=== PATIENT | female | born 1945 | race American Indian/Alaskan Native ===

== ENCOUNTER 2018-09-23 12:37 | Emergency (ER) | payer MEDICARE ==
--- NOTE | 2018-09-23 12:52 | Event Note ---
ED Screening Note ED Screening Note: here w fam all poor informants ? psych hx ? dementia htn This initial assessment/diagnostic orders/clinical plan/treatment(s) is/are subject to change based on patients health status, clinical progression and re- assessment by fellow clinical providers in the ED. Further treatment and workup at subsequent clinical providers discretion. Patient/guardian urged not to elope from the ED as their condition may be serious if not clinically assessed and managed. Initial orders include: ro med cause of her rambling thoughts and paranoia
[2018-09-23 13:23] LABS: Basophils % (Auto) 0.4 % (0.0-1.8); Eosinophils # (Auto) 0.1 K/mm3 (0.0-0.4); Eosinophils % (Auto) 1.1 % (0.0-4.3); Hematocrit 34.8 % (30.3-42.9); Hemoglobin 11.5 gm/dl (10.1-14.3); Lymphocytes # (Auto) 1.9 K/mm3 (1.2-5.4); Lymphocytes % (Auto) 33.2 % (13.4-35.0); Mean Corpuscular HGB Conc 33 % (30-34); Mean Corpuscular Volume 84 fl (79-97); Monocytes # (Auto) 0.3 K/mm3 (0.0-0.8); Monocytes % (Auto) 5.4 % (0.0-7.3); Platelet Count 247 K/mm3 (140-440); Red Blood Count 4.17 M/mm3 (3.65-5.03); Red Cell Distribution Width 15.9 % (13.2-15.2)
[2018-09-23 13:52] LABS: Albumin 4.1 g/dL (3.9-5); Calcium 9.9 mg/dL (8.4-10.2)
--- NOTE | 2018-09-23 15:13 | Cat Scan Report ---
CT HEAD WITHOUT CONTRAST: HISTORY: Altered mental status. TECHNIQUE: Sequential 2.5mm CT images. COMPARISON: none. FINDINGS: Cerebral Parenchyma: Mild hypoattenuation is identified throughout the white matter consistent with chronic small vessel disease. The remaining brain parenchyma demonstrates normal attenuation. Cerebellum: Within normal limits. Brainstem: Within normal limits. Ventricles: Normal. Sella: Normal. Extra-axial spaces: Normal. Basal Cisterns: Normal. Intracranial Hemorrhage: None. Midline Shift: None. Calvarium: Normal. Sinuses: Normal. Mastoid Air Cells: Normal. Visualized Orbits: Normal. IMPRESSION: Chronic small vessel disease in the white matter. No acute intracranial process is identified.
[2018-09-23] MEDS ORDERED: NORVASC PO ONE (20:40)
--- NOTE | 2018-09-23 20:44 | Emergency Department Report ---
HPI - General Chief Complaint: Psych Time Seen by Provider: 09/23/18 12:52 - HPI HPI: 73-year-old -[place] female presents to the emergency department, with her daughters at bedside, for a mental health evaluation. The patient has been exhibiting some paranoid delusions. The patient herself says that there are drugs that she is being exposed to wherever she is staying, including at her daughter's house, and it is knocking her unconscious. The patient is unable to say who was doing the drugs, how she knows that they are drugs, and cannot c onfirm that she has seen any drugs. The patient just recently came in from [place], where she lived, and has been going in between multiple family members houses. Her daughter says that she did not even know that her mother was in town until very recently. The patient also has been saying that people are stealing her stuff and then the alleged stolen goods are found later in the day or the next day. Patient does have some history of some type of paranoid delusions in the past, when she was living in [place], that appears to have caused her to require inpatient psychiatric treatment and evaluation. She has a past history of hypertension and some chronic kidney disease. She denies any s uicidal or homicidal ideations. ED Past Medical Hx - Past Medical History Previous Medical History?: Yes Hx Hypertension: Yes Hx Renal Disease: Yes - Surgical History Past Surgical History?: No ED Review of Systems ROS: Stated complaint: MH Other details as noted in HPI Comment: All other systems reviewed and negative Constitutional: denies: chills, fever Eyes: denies: eye pain, vision change ENT: denies: ear pain, throat pain Respiratory: denies: cough, shortness of breath Cardiovascular: denies: chest pain, palpitations Gastrointestinal: denies: abdominal pain, vomiting Genitourinary: denies: dysuria, discharge Musculoskeletal: denies: back pain, arthralgia Skin: denies: rash, lesions Neurological: denies: headache, weakness Psychiatric: other (paranoia, delusions). denies: homicidal thoughts, suicidal thoughts Physical Exam - Physical Exam Vital Signs: Vital Signs 09/23/18 09/23/18 09/23/18 13:05 17:56 20:08 Temperature 98.2 F 98.6 F Pulse Rate 85 60 61 Respiratory 18 16 17 Rate Blood Pressure 204/53 136/64 165/58 [Right] O2 Sat by Pulse 98 100 99 Oximetry Physical Exam: GENERAL: The patient is well-developed well-nourished. HENT: Normocephalic. Atraumatic. Patient has moist mucous membranes. EYES: Extraocular motions are intact. Pupils equal reactive to light bilaterally. NECK: Supple. Trachea is midline. CHEST/LUNGS: Clear to auscultation. There is no respiratory distress noted. HEART/CARDIOVASCULAR: Regular. There is no tachycardia. There is no murmur. ABDOMEN: Abdomen is soft, nontender. Patient has normal bowel sounds. There is no abdominal distention. SKIN: Skin is warm and dry. NEURO: The patient is awake, alert, and oriented. The patient is cooperative. The patient has no focal neurologic deficits. The patient has normal speech. MUSCULOSKELETAL: There is no tenderness or deformity. There is no evidence of acute injury. ED Course Vital Signs 09/23/18 09/23/18 09/23/18 13:05 17:56 20:08 Temperature 98.2 F 98.6 F Pulse Rate 85 60 61 Respiratory 18 16 17 Rate Blood Pressure 204/53 136/64 165/58 [Right] O2 Sat by Pulse 98 100 99 Oximetry ED Medical Decision Making - Lab Data Result diagrams: 09/23/18 12:59 09/23/18 12:59 - Medical Decision Making This patient presents to the emergency department for a mental health evaluation. She appears to be to experiencing paranoia and delusions and some persecutions. The patient thinks that she is being drugged despite the fact that nobody is doing drugs and she has not seen any drugs. She thinks that people are stealing things from her and then they are later found. There are a few moments with patient appears to realize that these things that she is discussing are not real but then has other moments where they appear very real to her and she is looking for legitimate answers. The patient is not suicidal or homicidal and denies any hallucinations. However the patient does appear to need some inpatient psychiatric treatment as these paranoid delusions are keeping her from leaving a normal life and is alienating her family. The patient has some known chronic kidney disease. Her creatinine is only 1.2 and her GFR is 44. She has some hypertension but is well controlled with blood pressure medication. Vital signs stable throughout ED course. The patient has been accepted to the [facility]. She is medically cleared for psychiatric treatment. - Differential Diagnosis schizophrenia, bipolar disorder, dementia Critical Care Time: No Critical care attestation.: If time is entered above; I have spent that time in minutes in the direct care of this critically ill patient, excluding procedure time. ED Disposition Clinical Impression: Paranoia, Delusions Hypertension Qualifiers: Hypertension type: essential hypertension Qualified Code(s): I10 - Essential (primary) hypertension Disposition: OP ADMIT IP TO THIS HOSP Is pt being admited?: Yes Condition: Stable Instructions: Hypertension (ED) Referrals: NOLAN JUAN MD [Primary Care Provider] - 3-5 Days Time of Disposition: 00:07
[2018-09-24 00:12] VITALS: BP 146/54
== END 2018-09-24 00:15 | disposition admitted as inpatient to this hospital (09) ==
LOC: ED 12:37 → UNDOADMIN 22:58 → 5A 22:58 → ED 09-24 00:15
DX: F22 Delusional disorders (principal); I10 Essential (primary) hypertension
CPT/HCPCS: 36415; 70450; 80053; 84443; 85025; 99284; G0480; 80320

== ENCOUNTER 2018-09-23 23:27 | Inpatient (IN) | payer MEDICARE ==
[2018-09-24 08:17] LABS: Chol/HDL Ratio 4.64 %
--- NOTE | 2018-09-24 08:59 | History and Physical Report ---
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 In my interview with the patient, she reports that her people have been gassing her "causing me to sleep and taking my things". She states that she smells gas but others cannot. She relocated from [place] on Saturday and since being in [place] she has went from cousin's, granddaughter, back to cousin, and now at her daughter's house, due to her accusing people of taking her things and drugging her. She reports that she was prescribed Risperidone and Trazodone for Schizophrenia and that she has been noncompliant to her meds for the past 3 mos. Per ED notes, daughter reported that patient has been agitated with family but non-aggressive. Patient denies SI/HI/AVH. Legal Status: Voluntary Patient Problems: Current Active Problems Schizophrenia (Acute) Reaction to Hospitalization: Accepting Substance History - Substance History Drug Use: none Hx Tobacco Use: No Alcohol Use: No Past psychiatric history - Past Medical History Past Medical History: hypertension - past Psychiatric treatment and history Psych: Schizophrenia psychiatric treatment history: She reports being admitted to a Psych facility for 7 days in [place] two years ago. She was prescribed Risperidone and Trazodone. No out-patient follow ups. No history of suicide attempt. - Social History Social history: , lives with family (completed College education, retired, no legal issues, no access to guns and no history of childhood abuse) Review of Systems All systems: negative Psychiatric: paranoia Results - Results Labs/Vitals: Laboratory Last Values 5.3 % (4-6) 09/24/18 07:01 Triglycerides 134 mg/dL (2-149) 09/24/18 07:01 Cholesterol 172 mg/dL (50-199) 09/24/18 07:01 115 mg/dL (50-130) 09/24/18 07:01 37 mg/dL (40-59) L 09/24/18 07:01 4.64 % 09/24/18 07:01 Physical Examination - Constitutional General appearance: Present: no acute distress, well-nourished - EENT Eyes: Present: PERRL, EOM intact ENT: hearing intact, clear oral mucosa, dentition normal - Neck Neck: Present: supple, normal ROM - Respiratory Respiratory effort: normal Mental Status Exam - Exam Orientation: time, place, person Affect: anxious Mood: anxious Thought content: delusions, ideas of reference, paranoia Perceptions: gustatory Speech: normal rate and pattern Concentration: focused Motor activity: normal Level of consciousness: alert Memory: Intact Sleep Symptoms: None Interaction: cooperative, pleasant Mini mental status exam(if necessary): 24-30 Assessment and Plan - Psychiatric problem (1) Schizophrenia Current Visit: Yes Status: Acute plan to address problem: Patient will be admitted for inpatient psychiatric evaluation, medication adjustment and close monitoring The patient's behavior, mood, sleep and appetite will be closely monitored. Patient will be enrolled in individual and group therapeutic sessions and encouraged to attend. Patient will be provided with a safe and structured environment. Patient's physical health needs will be addressed by the Hospitalist. Social Assessment will be completed and the Yoke Setter will work with patient and family to ensure a suitable and safe disposition Medication adjustment will be made as clinically indicated Will re-start Risperidone 0.5mg qhs and Trazodone 25mg qhs prn insomnia The patient agreed on the treatment plan, understood the risk, benefit, alternative treatment, potential consequence of no treatment, and gave informed consent. Physician Certification - Certification Statement Physician Certification Statement: This is an acknowledgement statement that EDWARD STOVALL is a 73 year old F who requires inpatient psychiatric admission for treatment which could reasonably be expected to improve the patient's condition for Schizophrenia Estimated period of time patient will need to remain in the hospital: 7 days Plan for post-hospital care: Out-patient care
[2018-09-24] MEDS ORDERED: ZESTRIL PO SCH (10:00)
[2018-09-24] MEDS: HALFPRIN EC PO SCH (10:07)
[2018-09-24] MEDS: VITAMIN D3 PO SCH (13:38)
--- NOTE | 2018-09-24 14:45 | History and Physical Report ---
History of Present Illness Date of admission: 09/24/18 00:10 Chief complaint: Psychosis History of present illness: 73 YO Female with HTN,Schizophrenia admitted to [facility] with Schizophrenia. Pt seen and evaluated in dayroom. Pt resting comfortable and denies any complaints. Pt pleasant and compliant with exam and interview. Pt denies fever, chills, CP, Palpitations, NVD, Trauma, or recent ill contacts. No reported nursing events. Past History Past Medical History: hypertension Past Surgical History: No surgical history, Other (reviewed) Social history: , lives with family (completed College education, retired, no legal issues, no access to guns and no history of childhood abuse) Family history: hypertension Medications and Allergies Allergies Allergy/AdvReac Type Severity Reaction Status Date / Time No Known Allergies Allergy Verified 09/23/18 23:55 Home Medications Medication Instructions Recorded Confirmed Last Taken Type Aspirin EC 81 mg PO DAILY 09/24/18 09/24/18 Unknown History Lisinopril [Zestril TAB] 40 mg PO QDAY 09/24/18 09/24/18 09/23/18 08:00 History Vitamin D3 5,000 UNIT 5,000 unit PO DAILY 09/24/18 09/24/18 09/23/18 08:00 History risperiDONE 0.5 mg PO DAILY MDD Daily 09/24/18 09/24/18 Unknown History Active Meds: Active Medications Aspirin (Halfprin Ec) 81 mg PO QDAY [facility] Last Admin: 09/24/18 10:07 Dose: 81 mg Documented by: Cholecalciferol (Vitamin D3) 5,000 unit PO QDAY [facility] Last Admin: 09/24/18 13:38 Dose: 5,000 unit Documented by: Lisinopril (Zestril) 40 mg PO QDAY [facility] Last Admin: 09/24/18 10:10 Dose: 40 mg Documented by: Risperidone (Risperdal) 0.5 mg PO [facility] Trazodone HCl (Desyrel) 25 mg PO QHS PRN PRN Reason: Insomnia Review of Systems Constitutional: no weight loss, no weight gain, no fever, no chills Ears, nose, mouth and throat: no ear pain, no ear discharge, no tinnitis, no decreased hearing Cardiovascular: no chest pain, no orthopnea, no palpitations, no rapid/irregular heart beat, no edema Respiratory: no cough, no cough with sputum, no hemoptysis Gastrointestinal: no abdominal pain, no nausea, no vomiting, no diarrhea Genitourinary Female: no pelvic pain, no flank pain, no menorrhagia, no dysuria, no urinary frequency, no urgency Rectal: no pain, no incontinence, no bleeding Musculoskeletal: no neck stiffness, no neck pain, no shooting arm pain, no arm numbness/tingling, no low back pain, no shooting leg pain Integumentary: no rash, no pruritis, no redness, no wounds, no jaundice Neurological: no transient paralysis, no paralysis, no weakness, no parathesias, no numbness, no tingling Psychiatric: no memory loss, no change in sleep habits, no sleep disturbances, no insomnia, no hypersomnia, no change in libido Endocrine: no cold intolerance, no heat intolerance, no polyphagia, no polydipsia, no polyuria Hematologic/Lymphatic: no easy bruising, no easy bleeding Allergic/Immunologic: no urticaria, no allergic rhinitis, no wheezing, no persistent infections, no anaphylaxis Exam - Constitutional Vitals: Temp Pulse Resp BP Pulse Ox 98.1 F 68 18 122/70 100 09/24/18 09:04 09/24/18 10:10 09/24/18 09:04 09/24/18 10:10 09/24/18 09:04 General appearance: Present: no acute distress - EENT Eyes: Present: PERRL ENT: hearing intact, clear oral mucosa - Neck Neck: Present: supple, normal ROM - Respiratory Respiratory effort: normal Respiratory: bilateral: CTA - Cardiovascular Heart Sounds: Present: S1 & S2. Absent: rub, click - Extremities Extremities: pulses symmetrical, No edema Peripheral Pulses: within normal limits - Abdominal General gastrointestinal: Present: soft, non-tender, non-distended, normal bowel sounds Female genitourinary: Present: normal - Integumentary Integumentary: Present: clear, warm, dry - Musculoskeletal Musculoskeletal: gait normal, strength equal bilaterally - Psychiatric Psychiatric: appropriate mood/affect, intact judgment & insight - Neurologic Neurologic: CNII-XII intact, moves all extremities Results - Labs Labs: Abnormal lab results 09/24/18 Range/Units 07:01 HDL Cholesterol 37 L (40-59) mg/dL Assessment and Plan - Patient Problems (1) Schizophrenia Current Visit: Yes Status: Acute Plan to address problem: Management as per primary team. (2) Hypertension Current Visit: No Status: Acute Qualifiers: Hypertension type: essential hypertension Qualified Code(s): I10 - Essential (primary) hypertension Plan to address problem: continue prehospital medication. monitor bp q shift, Pt normotensive at time of exam.
[2018-09-24] MEDS: RisperDAL PO SCH (21:27)
[2018-09-24] MEDS ORDERED: DESYREL PO PRN (22:00)
[2018-09-25] MEDS ORDERED: NON-FORMULARY (Aspirin Ec 81 MG) PO SCH (10:00)
[2018-09-25] MEDS: ZESTRIL PO SCH (10:03)
[2018-09-25] MEDS: VITAMIN D3 PO SCH (10:03)
[2018-09-25] MEDS: HALFPRIN EC PO SCH (10:04)
--- NOTE | 2018-09-25 12:37 | Progress Note ---
Subjective Date of service: 09/25/18 Principal diagnosis: Delusional disorder Subjective Comment: The patient continues to be paranoid, continues to accuse her family of gassing her and stealing from her. As a result of her paranoia she has relocated multiple times. She is pleasant, cooperative and compliant with treatment. She denies SI/HI/AVH. No reported or observed medication side effects. Objective - Criteria for Continued Treatment Criteria for Continued Treatment: Improving Level of Functioning, Understanding Diagnosis and need for Medication, Stablizing Level of Functioning, Improving Emotional/Socia - Mental Status Mental Status: Alert - Objective Observation Participation Level: Full Assessment and Plan - Patient Problems (1) Schizophrenia Current Visit: Yes Status: Acute Plan to address problem: Patient will be admitted for inpatient psychiatric evaluation, medication adjustment and close monitoring The patient's behavior, mood, sleep and appetite will be closely monitored. Patient will be enrolled in individual and group therapeutic sessions and encouraged to attend. Patient will be provided with a safe and structured environment. Patient's physical health needs will be addressed by the Hospitalist. Social Assessment will be completed and the Equipment Maintenance Superintendent will work with patient and family to ensure a suitable and safe disposition Medication adjustment will be made as clinically indicated Continue Risperidone 0.5mg qhs and Trazodone 25mg qhs prn insomnia The patient agreed on the treatment plan, understood the risk, benefit, alternative treatment, potential consequence of no treatment, and gave informed consent.
[2018-09-25] MEDS: RisperDAL PO SCH (21:31)
[2018-09-26] MEDS: VITAMIN D3 PO SCH (10:45)
[2018-09-26] MEDS: HALFPRIN EC PO SCH (10:46)
[2018-09-26] MEDS: ZESTRIL PO SCH (10:47)
[2018-09-26] MEDS: RisperDAL PO SCH (21:12)
[2018-09-27] MEDS: HALFPRIN EC PO SCH (10:54)
[2018-09-27] MEDS: ZESTRIL PO SCH (10:54)
[2018-09-27] MEDS: VITAMIN D3 PO SCH (10:54)
[2018-09-27] MEDS: RisperDAL PO SCH (21:59)
[2018-09-28] MEDS: VITAMIN D3 PO SCH (09:00)
[2018-09-28] MEDS: HALFPRIN EC PO SCH (09:31)
[2018-09-28] MEDS: ZESTRIL PO SCH (10:08)
[2018-09-28] MEDS: RisperDAL PO SCH (21:43)
--- NOTE | 2018-09-28 21:56 | Progress Note ---
Subjective Date of service: 09/26/18 Principal diagnosis: Delusional disorder Subjective Comment: The patient continues to be paranoid, continues to accuse her family of gassing her and stealing from her. She is pleasant, cooperative and compliant with treatment. She denies SI/HI/AVH. No reported or observed medication side effects. Objective - Criteria for Continued Treatment Criteria for Continued Treatment: Improving Level of Functioning, Reducing Isolative Behaviors, Understanding Diagnosis and need for Medication, Improving Treatment / Medication Compliance, Confronting Denial of Illness, Stablizing Level of Functioning, Improving Emotional/Socia - Mental Status Mental Status: Alert - Objective Observation Participation Level: Full Assessment and Plan - Patient Problems (1) Schizophrenia Current Visit: Yes Status: Acute Plan to address problem: Patient will be admitted for inpatient psychiatric evaluation, medication adjustment and close monitoring The patient's behavior, mood, sleep and appetite will be closely monitored. Patient will be enrolled in individual and group therapeutic sessions and encouraged to attend. Patient will be provided with a safe and structured environment. Patient's physical health needs will be addressed by the Hospitalist. Social Assessment will be completed and the Muleser will work with patient and family to ensure a suitable and safe disposition Medication adjustment will be made as clinically indicated Continue Risperidone 0.5mg qhs and Trazodone 25mg qhs prn insomnia The patient agreed on the treatment plan, understood the risk, benefit, a lternative treatment, potential consequence of no treatment, and gave informed consent.
--- NOTE | 2018-09-28 21:58 | Progress Note ---
Subjective Date of service: 09/27/18 Principal diagnosis: Delusional disorder Subjective Comment: The patient is pleasant, cooperative and compliant with treatment. She is still preoccupied by her suspiciousness/paranoia. She denies SI/HI/AVH. No reported or observed medication side effects. Objective - Criteria for Continued Treatment Criteria for Continued Treatment: Improving Level of Functioning, Reducing Isolative Behaviors, Understanding Diagnosis and need for Medication, Improving Treatment / Medication Compliance, Confronting Denial of Illness, Stablizing Level of Functioning, Improving Emotional/Socia - Mental Status Mental Status: Alert - Objective Observation Participation Level: Full Assessment and Plan - Patient Problems (1) Schizophrenia Current Visit: Yes Status: Acute Plan to address problem: Patient will be admitted for inpatient psychiatric evaluation, medication adjustment and close monitoring The patient's behavior, mood, sleep and appetite will be closely monitored. Patient will be enrolled in individual and group therapeutic sessions and encouraged to attend. Patient will be provided with a safe and structured environment. Patient's physical health needs will be addressed by the Hospitalist. Social Assessment will be completed and the Early Childhood Teacher Assistant will work with patient and family to ensure a suitable and safe disposition Medication adjustment will be made as clinically indicated Continue Risperidone 0.5mg qhs and Trazodone 25mg qhs prn insomnia The patient agreed on the treatment plan, understood the risk, benefit, alternative treatment, potential consequence of no treatment, and gave informed consent.
--- NOTE | 2018-09-28 22:00 | Progress Note ---
Subjective Date of service: 09/28/18 Principal diagnosis: Delusional disorder Subjective Comment: The patient is pleasant, cooperative and compliant with treatment. She denies SI/HI/AVH. No reported or observed medication side effects. Objective - Criteria for Continued Treatment Criteria for Continued Treatment: Improving Level of Functioning, Reducing Isolative Behaviors, Understanding Diagnosis and need for Medication, Improving Treatment / Medication Compliance, Confronting Denial of Illness, Stablizing Level of Functioning, Improving Emotional/Socia - Mental Status Mental Status: Alert - Objective Observation Participation Level: Full Assessment and Plan - Patient Problems (1) Schizophrenia Current Visit: Yes Status: Acute Plan to address problem: Patient will be admitted for inpatient psychiatric evaluation, medication adjustment and close monitoring The patient's behavior, mood, sleep and appetite will be closely monitored. Patient will be enrolled in individual and group therapeutic sessions and encouraged to attend. Patient will be provided with a safe and structured environment. Patient's physical health needs will be addressed by the Hospitalist. Social Assessment will be completed and the Seafood Preparer will work with patient and family to ensure a suitable and safe disposition Medication adjustment will be made as clinically indicated Continue Risperidone 0.5mg qhs and Trazodone 25mg qhs prn insomnia The patient agreed on the treatment plan, understood the risk, benefit, alternative treatment, potential consequence of no treatment, and gave informed consent.
--- NOTE | 2018-09-29 08:32 | Progress Note ---
Subjective Date of service: 09/29/18 Principal diagnosis: Delusional disorder Subjective Comment: The patient is pleasant, cooperative and compliant with treatment. She denies SI/HI/AVH. No reported or observed medication side effects. Will plan to discharge patient in am tomorrow. Objective - Criteria for Continued Treatment Criteria for Continued Treatment: Improving Level of Functioning, Improving Treatment / Medication Compliance, Stablizing Level of Functioning - Mental Status Mental Status: Alert - Objective Observation Participation Level: Full Assessment and Plan - Patient Problems (1) Schizophrenia Current Visit: Yes Status: Acute Plan to address problem: Patient will be admitted for inpatient psychiatric evaluation, medication adjustment and close monitoring The patient's behavior, mood, sleep and appetite will be closely monitored. Patient will be enrolled in individual and group therapeutic sessions and encouraged to attend. Patient will be provided with a safe and structured environment. Patient's physical health needs will be addressed by the Hospitalist. Social Assessment will be completed and the [employer] Specialist will work with patient and family to ensure a suitable and safe disposition Medication adjustment will be made as clinically indicated Continue Risperidone 0.5mg qhs and Trazodone 25mg qhs prn insomnia The patient agreed on the treatment plan, understood the risk, benefit, alternative treatment, potential consequence of no treatment, and gave informed consent.
[2018-09-29] MEDS: VITAMIN D3 PO SCH (09:47)
[2018-09-29] MEDS: HALFPRIN EC PO SCH (09:47)
[2018-09-29] MEDS: ZESTRIL PO SCH (09:48)
[2018-09-29] MEDS: RisperDAL PO SCH (21:15)
[2018-09-30] MEDS: VITAMIN D3 PO SCH (10:18)
[2018-09-30] MEDS: HALFPRIN EC PO SCH (10:19)
[2018-09-30] MEDS: ZESTRIL PO SCH (10:19)
[2018-09-30 10:20] VITALS: BP 149/79
--- NOTE | 2018-09-30 12:03 | Discharge Summary ---
Providers - Providers Date of Admission: 09/24/18 00:10 Date of discharge: 09/30/18 Attending physician: OMI DE LA FUENTE MD 09/23/18 23:33 Consult to Physician [CONS] Routine Comment: Consulting Provider: MORENO HERRING Physician Instructions: Reason For Exam: psych admission Primary care physician: [facility] Reason for admission: Paranoid, accusing family members of stealing from her and poisoning her Condition: Good Hospital course: The patient was provided inpatient psychiatric treatment with safe and supportive environment, group therapy, individual counseling, psychiatric medication, medication adjustment, adverse effect monitor, medical evaluation, medical treatment, social service assessment, family/social support meeting, placement assessment and psycho-education. The patients mood, anxiety, thoughts, stress management skill, cognition, impulse/anger control, motivation, understanding of disease, compliance to treatment and appreciation on family/social support are improved and stabilized. At the time of discharge, the patient had no suicidal ideas, no homicidal ideas, no aggressive thoughts, no endangering behavior and no debilitating adverse effects. The patient agreed on the treatment plan, understood the risk, benefit, alternative treatment, potential consequence of no treatment, and gave informed consent. The patient was advised to be compliant with medications, not to use drugs and not to drink alcohol. The patient understands that if suicidal ideas, homicidal ideas, or any endangering thoughts arise, the patient should immediately seek for emergent assistance including but not limited to crisis hot line and emergency room. Follow up with out-patient Psychiatrist and PCP within 14 - 21 days of discharge. Disposition: - TO HOME OR SELFCARE Time spent for discharge: 35 MINS Allergies/Adverse Reactions: Allergies No Known Allergies Allergy (Verified 09/23/18 23:55) Vital Signs: Last Vital Signs Temp 98.5 F 09/30/18 10:00 Pulse 63 09/30/18 10:19 Resp 18 09/29/18 22:00 BP 149/79 09/30/18 10:19 Pulse Ox 98 09/29/18 22:00 Last Lab: Laboratory Last Values 5.3 % (4-6) 09/24/18 07:01 Triglycerides 134 mg/dL (2-149) 09/24/18 07:01 Cholesterol 172 mg/dL (50-199) 09/24/18 07:01 115 mg/dL (50-130) 09/24/18 07:01 37 mg/dL (40-59) L 09/24/18 07:01 4.64 % 09/24/18 07:01 - Discharge Diagnoses (1) Schizophrenia Status: Acute Core Measure Documentation - Palliative Care Palliative Care/ Comfort Measures: Not Applicable - Core Measures Any of the following diagnoses?: none - VTE Discharge Requirements Deep Vein Thrombosis/Pulmonary Embolism Present on Admission: No Has pt received <5 days of overlap therapy or INR<2.0: No Anticoagulant overlap therapy prescribed at discharge: No Contraindication No Overlap Therapy order at DC: Not Indicated Exam - Constitutional Vitals: Temp Pulse Resp BP Pulse Ox 98.5 F 63 18 149/79 98 09/30/18 10:00 09/30/18 10:19 09/29/18 22:00 09/30/18 10:19 09/29/18 22:00 General appearance: Present: no acute distress, well-nourished - EENT Eyes: Present: PERRL, EOM intact ENT: hearing intact, clear oral mucosa - Neck Neck: Present: supple, normal ROM - Respiratory Respiratory effort: normal Plan Activity: no restrictions Weight Bearing Status: Full Weight Bearing Diet: low cholesterol Follow up with: NOLAN JUAN MD [Primary Care Provider] - 7 Days Prescriptions: traZODone [Desyrel] 25 mg PO QHS PRN #30 tablet PRN Reason: Insomnia risperiDONE [RisperDAL] 0.5 mg PO HS 30 Days #60 tablet
== END 2018-09-30 17:15 | disposition home or self-care (01) | DRG 885 ==
LOC: 5A 09-24 00:10
PROVIDERS: ADMIT Psychiatry & Neurology Psychiatry; ATTEND Psychiatry & Neurology Psychiatry
DX: F20.9 Schizophrenia, unspecified (principal); I10 Essential (primary) hypertension; Z82.49 Family history of ischemic heart disease and other diseases of the circulatory system; Z79.82 Long term (current) use of aspirin; Z79.899 Other long term (current) drug therapy
CPT/HCPCS: 36415; 70450; 80053; 80061; 80320; 83036; 84443; 85025; 99284; G0378; G0480